=== PATIENT | male | born 1980 | race Caucasian/White ===

== ENCOUNTER 2017-07-31 16:38 | Emergency (ER) | payer OTHER ==
[~2017-07-31] VITALS: Ht 185.4 cm; Wt 68.2 kg
[2017-07-31 16:44] VITALS: BP 130/81; PULSE 94; RESP 14; O2SAT 98
--- NOTE | 2017-07-31 17:12 | ED.REPORT ---
HPI-Rash / Abscess Date of Service Jul 31, 2017 ED Provider: Doc,Ed MD History of Present Illness: cyst present for 3 days under right axaillae. had a cyst on neck in 2014. primary care is in [place] on . Has increased in size daily, denies squeezing Nursing Notes Stated Complaint: CYST UNDER RIGHT ARMPIT Chief Complaint: Skin Rash/Abscess Nursing Notes Reviewed: Yes Allergies: Coded Allergies: lithium (Verified Allergy, Unknown, drrowsy, 07/31/17) morphine (Verified Allergy, Unknown, aggressive, 07/31/17) General Time Seen by MD: 17:11 Chief Complaint Abscess, Tender/swollen area Hx Obtained From: Patient Onset Occurred: 3 days ago Symptom Duration: Since onset Past Medical History Past Medical History Denies: Asthma, Diabetes mellitus Past Surgical History knee Smoking History Current Every Day Smoker (1/2 pack a day for 19 years) Social History Alcohol Use: Denies alcohol use Drug Use: THC Occupation lives with girlfriend no work or school 07/31/2017 Ambulatory Status Independent Review of Systems Basic Review of Systems : No dysuria, No frequency Neurologic: NL mental status, No weakness, No numbness Psychiatric: Normal thought content Physical Exam Initial Vital Signs Vital Signs (First) Date Time Temp Pulse Resp B/P Pulse Ox O2 Delivery O2 Flow Rate FiO2 07/31/17 16:44 36.8 94 14 130/81 98 Room Air Initial VS: Reviewed, Vital signs normal Head / Eyes: Atraumatic, Normocephalic, PERRL ENT: Mucous membranes moist, Conjunctiva normal, No scleral icterus Neck: Supple, Non-tender, Full range of motion Respiratory: Breath sounds normal, Clear to auscultation, No respiratory distress Cardiovascular: Regular rate & rhythm, Heart sounds normal, Intact distal pulses Abdomen / GI: Soft, Non-tender, No guarding, No rebound, No distention Back: No CVA tenderness Lymphatic: No lymphadenopathy Extremities: Vascular intact, Neuro intact, No swelling, No tenderness Neurologic: Alert, Oriented, Nonfocal Psychiatric: Mood/affect normal, Behavior normal, Normal thought content General/Constitutional: Awake, Alert, No acute distress, Well appearing, Well developed, Well hydrated Rash / Lesion Notes: abscess present under right axaellia. ENT: Atraumatic, Airway patent, Mucous membranes moist, Pharynx NL Respiratory / Chest: Atraumatic, Breath sounds NL, Breath sounds = bilat Cardiovascular: Heart rate NL, Regular rhythm, Heart sounds NL Procedures Incision & Drainage Abscess Time: 17:00 Procedure Performed by: Allied health pract Consent / Setup / Site Prep: Informed consent provided, Consent from patient , Hand hygiene observed Skin Preparation Agent: Betadine Local Anesthesia: Lidocaine w epi 1%, 4cc, 27g needle Incised Abscess with Scalpel: #11 Pus Drained: Medium, Purulent discharge Irrigation: Copious Post-Procedure / Complications: Packing placed, Culture obtained, Dressing applied, No complications, Condition improved, Tolerated procedure well, Patient stable Re-Eval/Medical Decision Med Decision/Clinical Course 37 year old male presents to the ER for evualation of abscess in right axaillae that has been present for 3 days. Site is opened with moderate release of discharge, packed and covered. patient to recheck on Saturday. No sign of nec fac or hidradenitis suppurativa. Discharge & Departure Impression: Primary Impression: Abscess Disposition: Home Patient Instructions: Abscess (ED), Abscess Incision and Drainage (DC) Additional Instructions: The site has been opened with a moderate amount of light green discharge out. The area has been packed. REturn on Saturday after 11 for a recheck. Start bactrim in the am and pm for 7 days. Use ibuprofen 800 mg up to 3 times a day. Can use percocet sparingly for severe unrelenting pain # 10. establish in primary care, consider the residency clinic. Referrals: [facility] EDSupervising Provider for APC: Melvina Gordon MD copies to: [facility] Whit Haider Jul 31, 2017 17:12
[2017-07-31] MEDS ORDERED: Lidocaine 1%-Epi 1:100,000 20 mL Inj ONE (17:23)
== END 2017-07-31 17:59 | disposition home or self-care (01) ==
LOC: SED 16:38
DX: L02.411 Cutaneous abscess of right axilla (principal); F17.200 Nicotine dependence, unspecified, uncomplicated; Z88.5 Allergy status to narcotic agent; Z88.8 Allergy status to other drugs, medicaments and biological substances